=== PATIENT | male | born 1985 | race African-American/Black ===

== ENCOUNTER 2024-12-25 07:14 | Emergency (ER) | payer MEDICAID ==
[~2024-12-25] VITALS: Ht 185.4 cm; Wt 75.0 kg
[2024-12-25 07:45] VITALS: TEMP 98.3
[2024-12-25 08:21] LABS: BASOPHILS % (AUTO) 0.6 % (0.0-2.0); EOSINOPHILS % (AUTO) 0.9 % (1.0-6.0); HEMATOCRIT 39.9 % (41-53); HEMOGLOBIN 13.6 g/dL (13.5-17.5); LYMPHOCYTES % (AUTO) 10.4 % (22.0-44.0); MEAN CORPUSCULAR HEMOGLOBIN 29.7 pg (26.0-34.0); MEAN CORPUSCULAR VOLUME 87 fL (80-100); MONOCYTES # (AUTO) 0.7 K/uL (0.1-1.0); MONOCYTES % (AUTO) 7.6 % (2.0-9.0); NEUTROPHILS # (AUTO) 7.8 K/uL (1.8-7.7); NEUTROPHILS % (AUTO) 80.5 % (40.0-70.0); PLATELET COUNT (AUTO) 206 K/uL (150-450); RED BLOOD CELL COUNT(AUTO) 4.57 MIL/uL (4.50-5.90); RED CELL DISTRIBUTION WIDTH 13.7 % (11.5-14.5); WHITE BLOOD COUNT (AUTO) 9.7 K/uL (4.5-11.0)
[2024-12-25 08:33] LABS: PROTHROMBIN TIME 10.1 SEC (9.4-11.6)
[2024-12-25 08:36] LABS: ANION GAP 1 mmol/L (8-16); CALCIUM, TOTAL 8.7 mg/dL (8.8-10.5); CARBON DIOXIDE 34 mmol/L (22-29); CHLORIDE 108 mmol/L (98-107); GLOMERULAR FILTR. RATE CALC > 60 mL/min (>60); GLUCOSE,RANDOM 91 mg/dL (70-110); POTASSIUM 4.2 mmol/L (3.5-5.1); SODIUM SERUM 143 mmol/L (136-145); UREA NITROGEN, BLOOD 5 mg/dL (7-18)
[2024-12-25] MEDS: LIDOCAINE 1% 20 ML VIAL SQ ONE (08:45)
[2024-12-25] MEDS ORDERED: POVIDONE-IODINE 10% 15 ML SOLUTION UD ONE ×2 (08:53→08:54)
[2024-12-25] MEDS ORDERED: LIDOCAINE 1% 10 ML VIAL ONE (09:00)
[2024-12-25 09:45] VITALS: BP 120/72; PULSE 49; RESP 16; O2SAT 99
[2024-12-25] MEDS ORDERED: SULF-261 PO (09:58)
[2024-12-25] MEDS ORDERED: CEPH-558 PO (09:58)
[2024-12-25] MEDS: BUPIVACAINE HCL/PF 0.5% 10 ML VIAL SQ ONE (10:45)
== END 2024-12-25 11:05 | disposition home or self-care (01) ==
LOC: EMS 07:20
DX: L02.215 Cutaneous abscess of perineum (principal)
CPT/HCPCS: 99285; 10060; 71045; 80048; 85025; 85610; 36415; 93005; J3490

== ENCOUNTER 2025-01-31 07:54 | Emergency (ER) | payer MEDICAID ==
[~2025-01-31] VITALS: Ht 188 cm; Wt 71.8 kg
[~2025-01-31 07:54] MED LIST: CEPH-558 PO; SULF-261 PO
[2025-01-31 08:16] VITALS: BP 116/67; PULSE 84; RESP 17; TEMP 96.9; O2SAT 96
[2025-01-31] MEDS ORDERED: SULF-261 PO (08:41)
[2025-01-31] MEDS ORDERED: CEPH-558 PO (08:41)
[2025-01-31] MEDS: LIDOCAINE/PF 1% 2 ML VIAL IM ONE (08:58)
[2025-01-31] MEDS: IBUPROFEN 600 MG TABLET PO ONE (08:58)
[2025-01-31] MEDS: CefTRIAXone SODIUM 1 GM/VIAL IM ONE (08:58)
== END 2025-01-31 09:16 | disposition home or self-care (01) ==
LOC: EMS 07:56
DX: L03.314 Cellulitis of groin (principal)
CPT/HCPCS: 99283; 96372; J0696; J3490

== ENCOUNTER 2025-04-21 14:05 | Emergency (ER) | payer MEDICAID, OTHER ==
[~2025-04-21] VITALS: Ht 185.4 cm; Wt 68.2 kg
[2025-04-21 14:15] VITALS: TEMP 97.5
[2025-04-21 14:35] VITALS: BP 112/77; PULSE 61; RESP 18; O2SAT 99
[2025-04-21] MEDS: IBUPROFEN 400 MG TABLET PO ONE (16:49)
[2025-04-21] MEDS: ACETAMINOPHEN 500 MG TABLET PO ONE (16:49)
== END 2025-04-21 18:15 | disposition home or self-care (01) ==
LOC: EMS 14:05
DX: M77.32 Calcaneal spur, left foot (principal); I10 Essential (primary) hypertension; F12.90 Cannabis use, unspecified, uncomplicated; F17.210 Nicotine dependence, cigarettes, uncomplicated; Z79.899 Other long term (current) drug therapy
CPT/HCPCS: 99283

== ENCOUNTER 2025-07-16 07:42 | Emergency (ER) | payer MEDICAID, OTHER ==
[~2025-07-16] VITALS: Ht 188 cm; Wt 79.0 kg
[2025-07-16 07:48] VITALS: TEMP 97.9
[2025-07-16 08:02] LABS: COVID AG,FIA SOURCE NASAL SWAB
[2025-07-16 08:21] LABS: RAPID GROUP A STREP NEGATIVE (NEGATIVE)
[2025-07-16 08:23] LABS: SARS-COV2 (COVID) ANTIGEN,FIA Negative (Negative)
[2025-07-16 08:24] LABS: INFLUENZA TYPE A NEGATIVE FOR TYPE A (NEGATIVE); INFLUENZA TYPE B NEGATIVE FOR TYPE B (NEGATIVE)
[2025-07-16] MEDS ORDERED: AMOX-457 PO (08:28)
[2025-07-16] MEDS ORDERED: IBUP-1492 PO (08:28)
[2025-07-16] MEDS: IBUPROFEN 600 MG TABLET PO ONE (08:32)
[2025-07-16] MEDS: AMOX TR/POT CLAV 875 MG/125 MG TABLET PO ONE (08:32)
[2025-07-16 08:39] VITALS: BP 115/75; PULSE 55; RESP 18; O2SAT 98
== END 2025-07-16 08:41 | disposition home or self-care (01) ==
LOC: EMS 07:48
DX: H61.22 Impacted cerumen, left ear (principal); H66.92 Otitis media, unspecified, left ear; R09.81 Nasal congestion; F17.210 Nicotine dependence, cigarettes, uncomplicated; F12.90 Cannabis use, unspecified, uncomplicated; I10 Essential (primary) hypertension; Z20.822 Contact with and (suspected) exposure to COVID-19
CPT/HCPCS: 87430; 87804; 99283